=== PATIENT | female | born 1985 | race Caucasian/White ===

== ENCOUNTER 2017-09-11 09:55 | Day surgery (SDC) | payer BC ==
[2017-09-11] MEDS: LACTATED RINGER'S 1,000 ML IV* (07:00)
[~2017-09-11 09:55] MED LIST: LIDOCAINE 2% (SDV) 5 ML INJ
[2017-09-11] MEDS ORDERED: ROCURONIUM 50 MG INJ (12:21)
[2017-09-11] MEDS ORDERED: MIDAZOLAM 1 MG/ML 2 ML INJ (12:21)
[2017-09-11] MEDS ORDERED: METOCLOPRAMIDE 10 MG INJ (12:21)
[2017-09-11] MEDS ORDERED: FENTAnyl 50 MCG/ML VIAL (12:21)
[2017-09-11] MEDS ORDERED: PROPOFOL 20 ML (12:21)
[2017-09-11] MEDS ORDERED: SUCCINYLCHOLINE CHLORIDE 100 MG/5 ML SYG IV (12:21)
[2017-09-11] MEDS: OXYMETAZOLINE 0.05% 15 ML NAS SPRAY NASAL (12:48)
[2017-09-11] MEDS: LIDOCAINE 1%/EPI 30 ML INJ (12:48)
[2017-09-11] MEDS ORDERED: HYDROmorphONE 1 MG/5 ML IV SYRINGE IV ×2 (13:39→14:00)
[2017-09-11] MEDS: HYDROmorphONE 1 MG/5 ML IV SYRINGE IV (13:53)
[2017-09-11] MEDS ORDERED: ONDANSETRON 4 MG INJ IV (14:00)
[2017-09-11] MEDS ORDERED: DIPHENHYDRAMINE 50 MG INJ IV (14:00)
[2017-09-11] MEDS ORDERED: MEPERIDINE 25 MG INJ IV (14:00)
[2017-09-11] MEDS ORDERED: FENTAnyl 50 MCG/ML VIAL IV (14:00)
[2017-09-11] MEDS: FENTAnyl 50 MCG/ML VIAL IV (14:19)
[2017-09-11] MEDS ORDERED: OXYCODONE/ACETAMINOPHEN (5/325) TAB PO (16:00)
== END 2017-09-11 15:58 | disposition home or self-care (01) ==
LOC: SDS 09:55
DX: J34.2 Deviated nasal septum (principal); E66.9 Obesity, unspecified; Z68.38 Body mass index [BMI] 38.0-38.9, adult
CPT/HCPCS: 30140; 84703; 88300

== ENCOUNTER 2018-10-15 17:46 | Emergency (ER) | payer BC ==
[2018-10-15 22:08] LABS: ADD MAN DIFF? NO
[2018-10-15 22:10] LABS: WHITE BLOOD COUNT 11.6 10^3/ul (4.8-10.8)
[2018-10-15 22:10] LABS: BASOPHILS % 0.1 % (0.0-2.0); EOSINOPHILS # 0.2 10^3/ul (0.0-0.5); EOSINOPHILS % 1.6 % (0.0-7.0); HEMATOCRIT 41.8 % (37.0-47.0); HEMOGLOBIN 13.4 g/dl (12.0-16.0); LYMPHOCYTES # 1.5 10^3/ul (0.8-2.9); LYMPHOCYTES % 12.5 % (15.0-51.0); MEAN CORPUSCULAR HEMOGLOBIN 28.2 pg (29.0-33.0); MEAN CORPUSCULAR HGB CONC 32.1 g/dl (32.0-37.0); MEAN PLATELET VOLUME 12.2 fl (7.4-10.4); MONOCYTE # 0.9 10^3/ul (0.3-0.9); MONOCYTES % 7.9 % (0.0-11.0); NEUTROPHILS % 77.6 % (39.0-77.0); PLATELET COUNT 194 10^3/UL (140-415); RED BLOOD COUNT 4.75 10^6/ul (4.20-5.40); RED CELL DISTRIBUTION WIDTH 13.3 % (11.5-14.5)
[2018-10-15] MEDS: SOD CHLORIDE 0.9% 1,000 ML IV (22:12)
[2018-10-15] MEDS: morphine 4 MG/ML VIAL IV (22:12)
[2018-10-15] MEDS: ONDANSETRON 4 MG INJ IV (22:12)
[2018-10-15 22:17] LABS: ALANINE AMINOTRANSFERASE 20 IU/L (13-69); ALBUMIN 4.3 g/dl (3.3-4.9); ALBUMIN/GLOBULIN RATIO 1.53; ALKALINE PHOSPHATASE 57 IU/L (42-121); ANION GAP 9 (5-13); ASPARTATE AMINO TRANSFERASE 16 IU/L (15-46); BILIRUBIN,INDIRECT 0.8 mg/dl (0-1.1); BILIRUBIN,TOTAL 0.8 mg/dl (0.2-1.3); BLOOD UREA NITROGEN 9 mg/dl (7-20); CALCIUM 9.3 mg/dl (8.4-10.2); CARBON DIOXIDE 24 mmol/L (21-31); CHLORIDE 104 mmol/L (97-110); Estimated GFR > 60 mL/min (>60); GLUCOSE 133 mg/dl (70-220); LIPASE 57 U/L (23-300); POTASSIUM 3.3 mmol/L (3.5-5.1); SODIUM 137 mmol/L (135-144); TOTAL PROTEIN 7.1 g/dl (6.1-8.1)
[2018-10-15 22:42] LABS: ADD UMIC YES; UR ASCORBIC ACID NEGATIVE (NEGATIVE); UR BILIRUBIN (Dip) NEGATIVE (NEGATIVE); UR BLOOD (Dip) 3+ mg/dL (NEGATIVE); UR CLARITY SLIGHTLY CLOUDY (CLEAR); UR COLOR YELLOW (YELLOW); UR GLUCOSE (Dip) NEGATIVE (NEGATIVE); UR KETONES (Dip) NEGATIVE (NEGATIVE); UR LEUKOCYTE ESTERASE (Dip) NEGATIVE Leu/ul (NEGATIVE); UR MUCUS MANY /HPF (NONE SEEN); UR NITRITE (Dip) NEGATIVE (NEGATIVE); UR RBC 10 /HPF (0-5); UR SPECIFIC GRAVITY (Dip) 1.023 (1.003-1.030); UR SQUAMOUS EPITHELIAL CELL FEW /HPF (FEW); UR TOTAL PROTEIN (Dip) NEGATIVE (NEGATIVE); UR UROBILINOGEN (Dip) NEGATIVE (NEGATIVE); UR WBC 6 /HPF (0-5)
[2018-10-16] MEDS: POTASSIUM CHLORIDE (SR) 20 MEQ TAB PO (00:53)
[2018-10-16] MEDS: LEVOFLOXACIN 750MG/D5W (PMX) 150 ML IVPB (01:21)
[2018-10-16] MEDS: ACETAMINOPHEN 325 MG TAB PO (01:21)
[2018-10-16] MEDS: SOD CHLORIDE 0.9% 100 ML (01:38)
[2018-10-16] MEDS: IOHEXOL 300MG/ML 150 ML BTL (01:38)
== END 2018-10-16 06:33 | disposition short-term general hospital (02) ==
LOC: E/R 17:46
DX: J90 Pleural effusion, not elsewhere classified (principal); R53.1 Weakness; Z87.891 Personal history of nicotine dependence
CPT/HCPCS: 36415; 71045; 71275; 74176; 80053; 81001; 83605; 83690; 84703; 85025; 87040-91; 87086; 93005; 96374; 96375; 99285-25

== ENCOUNTER 2018-11-23 20:32 | Emergency (ER) | payer BC ==
[2018-11-23] MEDS: HYDROCODONE/APAP (10/325) TAB PO (21:30)
[2018-11-23] MEDS: LIDOCAINE 1% (MDV) 20 ML INJ SC (22:11)
== END 2018-11-23 22:23 | disposition home or self-care (01) ==
LOC: FTE 20:32
DX: N75.1 Abscess of Bartholin's gland (principal); Z87.891 Personal history of nicotine dependence
CPT/HCPCS: 56420; 99283-25